=== PATIENT | male | born 1955 | race Hispanic/Latino ===

== ENCOUNTER 2017-04-10 05:50 | Day surgery (SDC) | payer OTHER ==
[2017-04-10 06:56] LABS: Basophils % (Auto) 1.5 % (0.0-1.8); Eosinophils % (Auto) 2.7 % (0.0-4.3); Hematocrit 38.5 % (35.5-45.6); Mean Corpuscular HGB Conc 34 % (32-34); Mean Corpuscular Hemoglobin 31 pg (28-32); Mean Corpuscular Volume 93 fl (84-94); Platelet Count 220 K/mm3 (140-440); Red Blood Count 4.14 M/mm3 (3.65-5.03); White Blood Count 8.6 K/mm3 (4.5-11.0)
[2017-04-10] MEDS ORDERED: NACL 0.9% 500 ML 500 ML IV SCH (07:00)
[2017-04-10 07:12] LABS: Anion Gap 18 mmol/L; Blood Urea Nitrogen 20 mg/dL (9-20); Calcium 8.7 mg/dL (8.4-10.2); Carbon Dioxide 26 mmol/L (22-30); Chloride 100.3 mmol/L (98-107); Glucose 96 mg/dL (75-100); Potassium 4.5 mmol/L (3.6-5.0); Sodium 140 mmol/L (137-145)
[2017-04-10] MEDS ORDERED: HEPARIN/NS 5000 UNIT/500ML(CATH LAB) 1,000 ML IR ONE (07:13)
[2017-04-10] MEDS: SUBLIMAZE ONE ×2 (08:02→08:08)
[2017-04-10] MEDS: VERSED ONE ×2 (08:02→08:08)
[2017-04-10] MEDS: XYLOCAINE 2% INFILTRATI ONE ×2 (08:02→08:09)
[2017-04-10] MEDS: CALAN ONE ×2 (08:03→08:11)
[2017-04-10] MEDS: HEPARIN 10,000 UNITS/10 ML ONE ×2 (08:03→08:11)
[2017-04-10] MEDS: NITROGLYCERIN SYRINGE 3 ML ONE ×2 (08:05→08:11)
[2017-04-10] MEDS ORDERED: NACL 0.9% 0 ML ONE (08:16)
[2017-04-10] MEDS ORDERED: ANGIOMAX IV ONE (08:16)
--- NOTE | 2017-04-10 08:57 | Short Stay Summary ---
Short Stay Documentation Date of service: 04/10/17 - History H&P: obtained from office - Allergies and Medications Current Medications: Allergies No Known Allergies Allergy (Unverified 04/10/17 05:50) Home Medications Medication Instructions Recorded Confirmed Last Taken Type Aspirin [Adult Low Dose Aspirin EC] 81 mg PO DAILY 04/10/17 04/10/17 04/10/17 04 :00 History ISOSORBIDE MONOnitrate [Imdur ER] 15 mg PO DAILY 04/10/17 04/10/17 04/10/17 04: 00 History Metoprolol [Lopressor] 12.5 mg PO BID 04/10/17 04/10/17 04/10/17 04:00 History Naltrexone (Nf) [Revia (Nf)] 4.5 mg PO DAILY 04/10/17 04/10/17 04/09/17 History Rosuvastatin (Nf) [Crestor] 10 mg PO QHS 04/10/17 04/10/17 04/09/17 History Active Medications Sodium Chloride (Nacl 0.9% 500 Ml) 500 mls @ 50 mls/hr IV DIRECT [facility]BY Stop: 04/10/17 16:59 Last Admin: 04/10/17 07:19 Dose: 50 mls/hr - Brief post op/procedure progress note Date of procedure: 04/10/17 Pre-op diagnosis: angina Post-op diagnosis: same Procedure: see report Anesthesia: local Estimated blood loss: none Pathology: none - Disposition Condition at discharge: Good Disposition: DISCHARGED TO HOME OR SELFCARE - Discharge Diagnoses (1) CAD (coronary artery disease) Status: Chronic Qualifiers: Coronary Disease-Associated Artery/Lesion type: [place] artery [place] vs. transplanted heart: [place] heart Associated angina: with stable angina Qualified Code(s): I25.118 - Atherosclerotic heart disease of [place] coronary artery with other forms of angina pectoris (2) Hyperlipemia, mixed Status: Chronic (3) Angina at rest Status: Acute Short Stay Discharge Plan Activity: advance as tolerated Diet: low fat, low cholesterol Wound: keep clean and dry Follow up with: VAISHALI NANCE MD [Staff Physician] - 7 Days
--- NOTE | 2017-04-10 10:25 | Cardiac Catherization Report ---
ORDERING PHYSICIAN: Dr. servin. PROCEDURE: Left heart cath. CLINICAL INFORMATION: This is a 61-year-old gentleman with coronary calcification, calcium score severe, has hyperlipidemia and has been having some rest chest pain relieved with nitroglycerin. He had admission to [facility] and was discharged. The patient is here for left heart catheterization for worsening anginal symptoms. Left heart catheterization performed via the right radial artery, sterile technique, local anesthesia, 6-[place] radial sheath inserted. PROCEDURE FINDINGS: Left system engaged JL3.5 catheter. Fluoroscopy see calcification of the left coronary system and right coronary artery system. Left main is a large caliber vessel. It is patent with mild luminal irregularities. LAD is a large caliber vessel that is patent, diffuse 20% noted. Diagonal 1 is a small caliber vessel is patent, mild luminal irregularities. Diagonal 2 is a small caliber mid 50% lesion. Circumflex is a medium caliber vessel it has an ostial 90% lesion in the circumflex and it bifurcates into a medium caliber OM1 and a medium caliber distal circumflex that is patent. RCA engaged with JR4 catheter, is a large dominant vessel is patent with mild luminal irregularities from proximally to mid distally, caliber becomes small with diffuse 70% then bifurcates small PDA that is patent. PLV has an ostial 90% lesion. LV gram done in the JAP[place]ESE and [place]RIQUEZ view shows normal LV function, EF 55 to 60%. LVEDP is 60 mmHg, LV is 110/16, aortic is 108/64. No gradient across the aortic valve on pullback. 5-Ukrainian catheters all taken over a guidewire, 6-[place] radial sheath was discontinued. Radial dressing applied. No hematoma. No bleeding. SUMMARY: 1. Complex coronary anatomy: Left main patent, LAD diffuse 20% circ ostial 90% with a patent OM1 and distal circ, RCA distal has a 70% with a bifurcating lesion at the PLV. Ostial 90% and PDA patent with normal LV function. 2. The patient will continue isosorbide and beta blockers, add Ranexa. Continue aspirin therapy. The patient will see [facility] for possible high risk angioplasty versus nonLIMA bypass. Discussed this in detail with the patient and the patient's family. JOB# [id number] STEVE/FRANCIS COLON
[2017-04-10 12:54] VITALS: BP 94/55
== END 2017-04-10 11:00 | disposition home or self-care (01) ==
LOC: OPU 05:50
PROVIDERS: ATTEND Internal Medicine
DX: I25.119 Atherosclerotic heart disease of native coronary artery with unspecified angina pectoris (principal); E78.2 Mixed hyperlipidemia; E78.00 Pure hypercholesterolemia, unspecified; I10 Essential (primary) hypertension; Z72.89 Other problems related to lifestyle; Z79.82 Long term (current) use of aspirin; Z79.01 Long term (current) use of anticoagulants; Z79.899 Other long term (current) drug therapy; Z98.890 Other specified postprocedural states; Z82.3 Family history of stroke; Z81.8 Family history of other mental and behavioral disorders
CPT/HCPCS: 36415; 80048; 85025; 85610; 85730; 93005; 93010; 93458; C1894; J1644; J2250; J3010; J7040; J0583; Q9967

== ENCOUNTER 2017-08-05 08:21 | Day surgery (SDC) | payer OTHER ==
[~2017-08-05 08:21] MED LIST: ANCEF/STERILE WATER 2 GM/20 ML 2 GM/20 ML SYRINGE IV NR; NACL 0.9% 1000 ML 1,000 ML IV SCH
[2017-08-05 09:03] LABS: Basophils % (Auto) 0.7 % (0.0-1.8); Eosinophils % (Auto) 1.2 % (0.0-4.3); Hematocrit 40.6 % (35.5-45.6); Hemoglobin 13.7 gm/dl (11.8-15.2); Mean Corpuscular HGB Conc 34 % (32-34); Mean Corpuscular Hemoglobin 32 pg (28-32); Mean Corpuscular Volume 95 fl (84-94); Platelet Count 257 K/mm3 (140-440); Red Blood Count 4.27 M/mm3 (3.65-5.03); Red Cell Distribution Width 13.4 % (13.2-15.2); White Blood Count 9.1 K/mm3 (4.5-11.0)
[2017-08-05 09:21] LABS: Anion Gap 15 mmol/L; BUN/Creatinine Ratio 21.11; Blood Urea Nitrogen 19 mg/dL (9-20); Calcium 9.2 mg/dL (8.4-10.2); Carbon Dioxide 29 mmol/L (22-30); Chloride 102.6 mmol/L (98-107); Glucose 99 mg/dL (75-100); Potassium 4.5 mmol/L (3.6-5.0); Sodium 142 mmol/L (137-145)
[2017-08-05 09:26] LABS: INR 0.96 (0.87-1.13)
[2017-08-05] MEDS ORDERED: HEPARIN/NS 5000 UNIT/500ML(CATH LAB) 1,000 ML IR ONE (13:05)
[2017-08-05] MEDS ORDERED: XYLOCAINE 2% INFILTRATI ONE (13:06)
[2017-08-05] MEDS: SUBLIMAZE ONE ×4 (13:12→14:27)
[2017-08-05] MEDS: VERSED ONE ×4 (13:14→14:27)
[2017-08-05] MEDS ORDERED: ANCEF/STERILE WATER 2 GM/20 ML 2 GM/20 ML SYRINGE IV ONE (13:18)
[2017-08-05] MEDS ORDERED: ANCEF/STERILE WATER 2 GM/20 ML IV ONE (13:19)
[2017-08-05] MEDS: HEPARIN 10,000 UNITS/10 ML ONE ×3 (13:34→15:04)
[2017-08-05] MEDS ORDERED: VERSED ONE (14:46)
[2017-08-05] MEDS ORDERED: SUBLIMAZE ONE (14:47)
[2017-08-05] MEDS ORDERED: HEPARIN/NS 5000 UNIT/500ML(CATH LAB) 500 ML IR ONE (14:52)
[2017-08-05] MEDS ORDERED: NITROGLYCERIN SYRINGE 0 ML ONE (15:29)
--- NOTE | 2017-08-05 16:27 | Operative Report ---
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 and early resting ischemia, possible dissection versus atherosclerotic stenosis with thrombosis Post-operative diagnosis: Same Procedure name(s): Percutaneous angioplasty with stent left popliteal artery #2 intravascular ultrasound of the left popliteal artery #3 percutaneous secondary mechanical thrombectomy left popliteal artery #4 successful crossing of chronic total occluded popliteal artery #5 duplex guided cannulation right common femoral artery Surgeon: Manuel Kate MD Marketing Summer Intern: Flavia Virgen MD Anesthesia: Moderate sedation, start time 1326, end time 1539 EBL: Less than 200 mL Specimen(s): Thrombus, discarded Complications: None Findings: 10 cm long the popliteal artery at the joint, 5 cm totally occluded, minimal intraluminal thrombus removed using percutaneous thrombectomy technique , the intra-vascular ultrasound suggested dissection plane with intramural thrombus, intravascular ultrasound also resulted in resizing upward of the stent due to larger than anticipated measurements of the popliteal artery diameters. Successful deployment of self expanding stent across the stenotic lesion resulting in complete resolution of the occlusion and return of palpable pulses to the foot Procedure: [Patient in the supine position both groins and the left leg were prepped and draped using standard sterile technique. Duplex guidance was used to identify the right common femoral artery was confirmed to be patent. Real- time duplex imaging was used to obtain access to the right common femoral artery using micropuncture technique and a microwire and sheath were advanced into the external iliac. Images were saved. The micro-sheath was upsized to a 6 Kos[place] destination sheath in access to the contralateral iliac system was obtained using the advantage wire and a rim catheter. Limited images were obtained to facilitate placement of the wires and sheaths into the superficial femoral artery. The patient was heparinized and adequate anticoagulation was maintained throughout the duration of the procedure. The advantage wire was advanced down the left leg and the rim catheter was replaced with a trailblazer catheter was parked just above the origin of the popliteal artery in the distal thigh. Contrast was injected which showed a 10 cm lesion involving the proximal and mid popliteal artery with reconstitution of a normal caliber popliteal artery just below the joint. 5 cm total occlusion associated with this lesion. The advantage wire was exchanged for a V -18 crossing wire and using the quick cross and wire successfully manipulated both into the below- knee popliteal artery and confirmed luminal patency. The quick cross was passed into the mid calf and the wire was exchanged for a 014 [place] core wire. The intravascular ultrasound was then advanced cross the popliteal artery lesion and the entire vessel from above the occlusion to below the occlusion was interrogated draining new size measurements which were larger than estimated at approximately 7 mm above and 6 mm below the occlusion. The occlusion appeared to be secondary to dissection however diagnosis did suggest some intraluminal thrombus. We then obtained a 6 [place] Prenumbra mechanical thrombectomy catheter and made several passes across the lesion removing only a small amount of thrombus. There was only minimal improvement in the radiographic appearance. It was elected to proceed with angioplasty and stenting of the lesion. Once again I replaced the 014 wire with an 035 advantage wire and then was successful in advancing a [place] self expanding stent across the 10 cm lesion and using fluoroscopy was able to successfully deployed a stent at the intended landing zones. I initially had difficulty getting a balloon across the stent but ultimately at 2014 wire, predilated with a 4 mm balloon, dilated and posteriorly with a 6 mm balloon, reassessed and reposted with a 7 mm balloon with excellent radiographic improvement in the diameter of the blood vessel and completely removed from the obstruction. Angiograms confirmed no distal embolization and the patient developed palpable pedal pulses. Having achieved all of our preoperative goals I then removed the guidewires and catheters from the left leg and proceeded to obtain hemostatic closure using an Angio-Seal 6 Kos[place] in the right groin and was returned to the recovery area in stable condition with a palpable pulse on the left and no evidence of hemorrhage or bleeding in the right groin.]
--- NOTE | 2017-08-05 16:33 | Short Stay Summary ---
Short Stay Documentation Date of service: 08/05/17 Narrative H&P: Admitted to the [facility] for outpatient revascularization of his occluded left popliteal artery - History H&P: obtained from office - Allergies and Medications Current Medications: Allergies No Known Allergies Allergy (Unverified 04/10/17 05:50) Home Medications Medication Instructions Recorded Confirmed Last Taken Type Aspirin [Adult Low Dose Aspirin EC] 81 mg PO DAILY 04/10/17 08/05/17 08/05/17 06 :30 History 81mg ISOSORBIDE MONOnitrate [Imdur ER] 15 mg PO DAILY 04/10/17 08/05/17 08/05/17 06: 30 History 15mg Metoprolol [Lopressor TAB] 12.5 mg PO BID 04/10/17 08/05/17 08/05/17 06:30 History 12.5mg Rosuvastatin (Nf) [Crestor] 20 mg PO QHS 04/10/17 08/05/17 08/04/17 History 20mg Ranolazine [Ranexa] 500 mg PO BID 08/05/17 08/05/17 08/05/17 06:30 History 500 mg Active Medications Cefazolin Sodium (Ancef/Sterile Water 2 Gm/20 Ml) 2 gm in 20 mls @ 80 mls/hr IV PREOP NR PRN Reason: Protocol Stop: 08/05/19 23:59 Last Admin: 08/05/17 13:19 Dose: 0 mls Sodium Chloride (Nacl 0.9% 1000 Ml) 1,000 mls @ 42 mls/hr IV DIRECT KOLBY Last Admin: 08/05/17 09:29 Dose: 42 mls/hr Sodium Chloride (Nacl 0.9% 1000 Ml) 1,000 mls @ 150 mls/hr IV DIRECT KOLBY - Brief post op/procedure progress note Date of procedure: 08/05/17 Procedure: Pre-operative diagnosis: 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 and early resting ischemia, possible dissection versus atherosclerotic stenosis with thrombosis Post-operative diagnosis: Same Procedure name(s): Percutaneous angioplasty with stent left popliteal artery #2 intravascular ultrasound of the left popliteal artery #3 percutaneous secondary mechanical thrombectomy left popliteal artery #4 successful crossing of chronic total occluded popliteal artery #5 duplex guided cannulation right common femoral artery Surgeon: Manuel Kate MD Tax Advisor: Flavia Virgen MD Anesthesia: Moderate sedation, start time 1326, end time 1539 EBL: Less than 200 mL Specimen(s): Thrombus, discarded Complications: None Findings: 10 cm long the popliteal artery at the joint, 5 cm totally occluded, minimal intraluminal thrombus removed using percutaneous thrombectomy technique , the intra-vascular ultrasound suggested dissection plane with intramural thrombus, intravascular ultrasound also resulted in resizing upward of the stent due to larger than anticipated measurements of the popliteal artery diameters. Successful deployment of self expanding stent across the stenotic lesion resulting in complete resolution of the occlusion and return of palpable pulses to the foot Procedure: [Patient in the supine position both groins and the left leg were prepped and draped using standard sterile technique. Duplex guidance was used to identify the right common femoral artery was confirmed to be patent. Real- time duplex imaging was used to obtain access to the right common femoral artery using micropuncture technique and a microwire and sheath were advanced into the external iliac. Images were saved. The micro-sheath was upsized to a 6 [place] destination sheath in access to the contralateral iliac system was obtained using the advantage wire and a rim catheter. Limited images were obtained to facilitate placement of the wires and sheaths into the superficial femoral artery. The patient was heparinized and adequate anticoagulation was maintained throughout the duration of the procedure. The advantage wire was advanced down the left leg and the rim catheter was replaced with a trailblazer catheter was parked just above the origin of the popliteal artery in the distal thigh. Contrast was injected which showed a 10 cm lesion involving the proximal and mid popliteal artery with reconstitution of a normal caliber popliteal artery just below the joint. 5 cm total occlusion associated with this lesion. The advantage wire was exchanged for a V -18 crossing wire and using the quick cross and wire successfully manipulated both into the below- knee popliteal artery and confirmed luminal patency. The quick cross was passed into the mid calf and the wire was exchanged for a 014 [place] core wire. The intravascular ultrasound was then advanced cross the popliteal artery lesion and the entire vessel from above the occlusion to below the occlusion was interrogated draining new size measurements which were larger than estimated at approximately 7 mm above and 6 mm below the occlusion. The occlusion appeared to be secondary to dissection however diagnosis did suggest some intraluminal thrombus. We then obtained a 6 [place] Prenumbra mechanical thrombectomy catheter and made several passes across the lesion removing only a small amount of thrombus. There was only minimal improvement in the radiographic appearance. It was elected to proceed with angioplasty and stenting of the lesion. Once again I replaced the 014 wire with an 035 advantage wire and then was successful in advancing a [place] self expanding stent across the 10 cm lesion and using fluoroscopy was able to successfully deployed a stent at the intended landing zones. I initially had difficulty getting a balloon across the stent but ultimately at 2013 wire, predilated with a 4 mm balloon, dilated and posteriorly with a 6 mm balloon, reassessed and reposted with a 7 mm balloon with excellent radiographic improvement in the diameter of the blood vessel and completely removed from the obstruction. Angiograms confirmed no distal embolization and the patient developed palpable pedal pulses. Having achieved all of our preoperative goals I then removed the guidewires and catheters from the left leg and proceeded to obtain hemostatic closure using an Angio-Seal 6 [place] in the right groin and was returned to the recovery area in stable condition with a palpable pulse on the left and no evidence of hemorrhage or bleeding in the right groin. - Hospital course Hospital course: Benign recovery with return of palpable pulses to his left foot. 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
[2017-08-05] MEDS ORDERED: NACL 0.9% 1000 ML 1,000 ML IV SCH (17:00)
[2017-08-05] MEDS ORDERED: PLAVIX ONE (17:01)
[2017-08-05 17:35] VITALS: BP 119/77
[2017-08-05] MEDS ORDERED: PLAVIX PO ONE (18:00)
--- NOTE | 2017-08-06 08:28 | Vascular Lab Report ---
MISCELLANEOUS VESSEL IDENTIFICATION: COMMENTS ON THE SCAN: The right common femoral artery was identified and under real-time ultrasound guidance was cannulated. IMPRESSION: Successful ultrasound guided arterial cannulation.
[2017-08-06] MEDS ORDERED: PLAVIX PO SCH (10:00)
== END 2017-08-05 18:11 | disposition home or self-care (01) ==
LOC: CATHLABREC 08:21
PROVIDERS: ATTEND Surgery Vascular Surgery
DX: I70.212 Atherosclerosis of native arteries of extremities with intermittent claudication, left leg (principal); E78.2 Mixed hyperlipidemia; I10 Essential (primary) hypertension; I72.4 Aneurysm of artery of lower extremity; Z98.890 Other specified postprocedural states; Z72.89 Other problems related to lifestyle; Z79.82 Long term (current) use of aspirin; Z79.899 Other long term (current) drug therapy
CPT/HCPCS: 36415; 37184; 37226; 37252; 75710; 76937; 80048; 85025; 85610; 85730; C1725; C1753; C1760; C1769; C1887; J0690; J1644; J2250; J3010; J7030; Q9967